=== PATIENT | male | born 1970 | race Caucasian/White ===

== ENCOUNTER 2020-08-01 15:46 | Inpatient (IN) | payer BC ==
[~2020-08-01] VITALS: Ht 167.6 cm; Wt 57.6 kg
[2020-08-01] MEDS ORDERED: ACETAMINOPHEN 325MG TABLET PO STA (19:09)
[2020-08-01 21:20] LABS: HEMATOCRIT. 24.9 % (42.0-52.0); HEMOGLOBIN. 8.3 g/dL (14.0-18.0); MEAN CORPUSCULAR HEMOGLOBIN 28.7 pg (28.0-32.0); MEAN CORPUSCULAR VOLUME 86.1 fL (80.0-94.0); MEAN PLATELET VOLUME 6.6 fl (7.4-10.4); PLATELET 816 x1000/uL (130-400); RED BLOOD CELL COUNT 2.89 mill/uL (4.7-6.1); RED CELL DISTRIBUTION WIDTH 15.6 % (11.6-14.6)
[2020-08-01 21:24] LABS: CHLORIDE 99 mEq/L (98-107)
[2020-08-01 21:28] LABS: INR 1.5; PROTHROMBIN TIME 15.1 sec (9.6-11.0)
[2020-08-01 21:41] LABS: PLATELET ESTIMATE MARKEDLY INCREASED
[2020-08-02] VITALS (22 sets, daily range): BP systolic 107–128; BP diastolic 60–80
[2020-08-02] MEDS ORDERED: SODIUM CHLORIDE 0.9% 1,000 ML IV ONE (00:45)
[2020-08-02] MEDS ORDERED: PIPERACILLIN/TAZ 3.375G PREMIX 50 ML IV ONE (01:00)
[2020-08-02] MEDS ORDERED: METRONIDAZOLE 500 MG PREMIX 100 ML IV ONE (01:00)
[2020-08-02] MEDS ORDERED: IOHEXOL-300 100 ML BOTTLE ONE (01:53)
[2020-08-02] MEDS ORDERED: MORPHINE SULFATE 4 MG/ML CPJ (NOT FOR IM USE) IV ONE (03:00)
[2020-08-02] MEDS ORDERED: FENTANYL CITRATE/PF 50MCG/ML 2ML VIAL ONE (09:04)
[2020-08-02] MEDS ORDERED: FENTANYL CITRATE/PF 50MCG/ML 2ML VIAL IV NR (09:04)
[2020-08-02] MEDS ORDERED: LIDOCAINE HCL 1% 20ML VIAL (Pyxis) INJ ONE (09:06)
[2020-08-02] MEDS ORDERED: SODIUM BICARBONATE 4% (2.4MEQ) 5ML VIAL IV ONE (09:07)
[2020-08-02] MEDS ORDERED: ONDANSETRON HCL 4MG/2ML INJ IV PRN (13:00)
[2020-08-02] MEDS ORDERED: MORPHINE SULFATE 2 MG/ML CPJ (NOT FOR IM USE) IV PRN (13:00)
[2020-08-02 14:59] LABS: TOTAL IRON BINDING CAPACITY 123 ug/dL (250-450)
[2020-08-02] MEDS: PIPERACILLIN/TAZOBACTAM 3.375 G in DEXT 5% WATER 100 ML IV SCH ×2 (15:30→20:23)
[2020-08-02] MEDS: HYDROCODONE/ACETAMINOPHEN 5/325MG TABLET PO PRN (20:22)
[2020-08-03] VITALS (19 sets, daily range): BP systolic 101–120; BP diastolic 44–70
[2020-08-03] MEDS: PIPERACILLIN/TAZOBACTAM 3.375 G in DEXT 5% WATER 100 ML IV SCH ×4 (01:24→21:00)
[2020-08-03] MEDS: ACETAMINOPHEN 325MG TABLET PO PRN ×2 (01:24→22:12)
[2020-08-03 07:26] LABS: HEMATOCRIT. 22.6 % (42.0-52.0); HEMOGLOBIN. 7.4 g/dL (14.0-18.0); MEAN CORPUSCULAR HEMOGLOBIN 28.3 pg (28.0-32.0); MEAN CORPUSCULAR VOLUME 86.2 fL (80.0-94.0); MEAN PLATELET VOLUME 6.5 fl (7.4-10.4); PLATELET 644 x1000/uL (130-400); RED BLOOD CELL COUNT 2.62 mill/uL (4.7-6.1); RED CELL DISTRIBUTION WIDTH 15.2 % (11.6-14.6)
[2020-08-03 07:37] LABS: CHLORIDE 103 mEq/L (98-107)
[2020-08-03] MEDS: HYDROCODONE/ACETAMINOPHEN 5/325MG TABLET PO PRN (10:59)
[2020-08-03 14:35] LABS: PLATELET ESTIMATE INCREASED
[2020-08-03] MEDS ORDERED: IPRATROPIUM/ALBUTEROL 0.5-3(2.5)MG/3ML NEB HHN PRN (15:15)
[2020-08-03] MEDS ORDERED: MONTELUKAST SODIUM 10MG TABLET PO SCH (17:00)
[2020-08-04] MEDS: PIPERACILLIN/TAZOBACTAM 3.375 G in DEXT 5% WATER 100 ML IV SCH ×3 (03:55→13:50)
[2020-08-04 04:00] VITALS: BP 114/68
[2020-08-04 06:48] LABS: CHLORIDE 104 mEq/L (98-107)
[2020-08-04 06:55] LABS: HEMATOCRIT. 21.7 % (42.0-52.0); HEMOGLOBIN. 7.3 g/dL (14.0-18.0); MEAN CORPUSCULAR HEMOGLOBIN 28.8 pg (28.0-32.0); MEAN CORPUSCULAR VOLUME 85.4 fL (80.0-94.0); MEAN PLATELET VOLUME 6.5 fl (7.4-10.4); PLATELET 626 x1000/uL (130-400); RED BLOOD CELL COUNT 2.54 mill/uL (4.7-6.1); RED CELL DISTRIBUTION WIDTH 15.5 % (11.6-14.6)
[2020-08-04 12:00] VITALS: BP 110/68
[2020-08-04] MEDS ORDERED: HYDR-4001 PO (12:41)
[2020-08-04] MEDS ORDERED: LINE600T14 MT (14:11)
[2020-08-04] MEDS ORDERED: CEFD300C3 MT (14:11)
[2020-08-04 14:59] VITALS: BP 112/74
[2020-08-04 15:08] LABS: PLATELET ESTIMATE INCREASED
[2020-08-04 16:00] VITALS: BP 114/65
== END 2020-08-04 16:00 | disposition home or self-care (01) | DRG 862 ==
LOC: ER 15:46 → 3WST 08-02 02:46 → ENRESERV 08-02 10:15 → 6EST 08-04 01:15
PROVIDERS: ADMIT Internal Medicine Nephrology; ATTEND Internal Medicine Nephrology
PROC: 0W9F30Z Drainage of Abdominal Wall with Drainage Device, Percutaneous Approach (ICD-10-PCS; principal; 2020-08-02)
DX: T81.41XA Infection following a procedure, superficial incisional surgical site, initial encounter (principal); E43 Unspecified severe protein-calorie malnutrition; A41.9 Sepsis, unspecified organism; E87.1 Hypo-osmolality and hyponatremia; K57.80 Diverticulitis of intestine, part unspecified, with perforation and abscess without bleeding; L02.211 Cutaneous abscess of abdominal wall; D64.9 Anemia, unspecified; J45.909 Unspecified asthma, uncomplicated; Y83.8 Other surgical procedures as the cause of abnormal reaction of the patient, or of later complication, without mention of misadventure at the time of the procedure; T81.44XA Sepsis following a procedure, initial encounter; Y92.89 Other specified places as the place of occurrence of the external cause; Z20.828 Contact with and (suspected) exposure to other viral communicable diseases
CPT/HCPCS: 36415; 74177; 77012; 80048; 80053; 82728; 83540; 83550; 85025; 86850; 86900; 87070; 87075; 87077; 87186; 87426; 93005; 96365; 99285; C1729; C1769; J2270; J2543; J3010; J3490; J7030; J7040; J7060; L8514; Q9967